=== PATIENT | male | born 1950 | race Caucasian/White ===

== ENCOUNTER 2016-11-16 13:28 | Emergency (ER) | payer SELFPAY ==
[~2016-11-16 13:28] MED LIST: NO MEDICATIONS
== END 2016-11-16 13:38 | disposition home or self-care (01) ==
LOC: SED 13:28
DX: S61.210D Laceration without foreign body of right index finger without damage to nail, subsequent encounter (principal); I51.9 Heart disease, unspecified; W45.8XXD Other foreign body or object entering through skin, subsequent encounter; Y92.009 Unspecified place in unspecified non-institutional (private) residence as the place of occurrence of the external cause
CPT/HCPCS: 99281